=== PATIENT | male | born 1970 | race Caucasian/White ===

== ENCOUNTER → 2016-12-03 | Outpatient (CLI) | payer OTHER ==
--- NOTE | 2016-12-03 08:36 | DI ---
Indication: ITS.REASON: N50.812 PAIN IN LEFT TESTICLE PROCEDURE: US TESTICULAR: Encounter: Initial Comparison: None FINDINGS: Both testicles are present in expected location. The testicles demonstrate a homogenous echotexture without intratesticular mass. The right testicle measures 3.1 x 1.7 x 3.9 cm, and the left testicle measures 3.4 x 2 x 2.8 cm. Color Doppler imaging demonstrates symmetric, arterial flow throughout both testicles. Normal pulsed Doppler arterial and venous waveforms were obtained from each testicle. Both epididymides are normal without focal mass or hyperemia. No abnormal intrascrotal fluid collections. IMPRESSION: Normal scrotal sonogram. .
== END ==
LOC: IMA 06:28
PROVIDERS: ATTEND Family Medicine
DX: N50.812 Left testicular pain (principal)